=== PATIENT | female | born 1955 | race African-American/Black ===

== ENCOUNTER 2019-03-20 21:31 | Inpatient (IN) | payer MEDICAID ==
[~2019-03-20] VITALS: Ht 157.5 cm; Wt 137.7 kg
[~2019-03-20 21:31] MED LIST: ASPI-1393 MT; BRIM.2 EACHEYE; FURO80TA3 PO; HYDR-4001 MT; ONDA4TAB5 MT
[2019-03-20] MEDS ORDERED: ONDANSETRON HCL 4MG/2ML INJ IV STA (22:12)
[2019-03-20] MEDS ORDERED: KETOROLAC 30MG/ML VIAL IV STA (22:12)
[2019-03-20] MEDS ORDERED: SODIUM CHLORIDE 0.9% 1,000 ML IV ONE (22:12)
[2019-03-20 23:17] LABS: BASOPHILS % 0.3 % (0.0-2.0); EOSINOPHILS % 0.2 % (0.0-5.0); HEMATOCRIT. 39.4 % (36.0-48.0); HEMOGLOBIN. 12.5 g/dL (12.0-16.0); MEAN CORPUSCULAR HEMOGLOBIN 28.7 pg (28.0-32.0); MEAN CORPUSCULAR VOLUME 90.1 fL (81.0-99.0); NEUTROPHILS % 81.5 % (40.0-76.0); PLATELET 361 x1000/uL (130-400); RED BLOOD CELL COUNT 4.37 mill/uL (4.2-5.4); RED CELL DISTRIBUTION WIDTH 15.6 % (11.6-14.6)
[2019-03-20 23:23] LABS: CHLORIDE 101 mEq/L (98-107)
[2019-03-20 23:25] LABS: PROTHROMBIN TIME 10.1 sec (9.6-11.0)
[2019-03-21 00:45] LABS: CLARITY URINE CLOUDY (CLEAR); COLOR URINE DARK YELLOW (YELLOW); KETONES URINE TRACE (NEGATIVE); LEUKOCYTE ESTERASE URINE NEGATIVE (NEGATIVE); NITRITE URINE NEGATIVE (NEGATIVE); OCCULT BLOOD URINE NEGATIVE (NEGATIVE); PROTEIN URINE 1+ (NEGATIVE); SPECIFIC GRAVITY URINE 1.032 (1.005-1.030)
[2019-03-21] MEDS ORDERED: MORPHINE SULFATE 4 MG/ML CPJ (NOT FOR IM USE) IV ONE (00:45)
[2019-03-21] MEDS ORDERED: METOCLOPRAMIDE HCL 10MG/2ML VIAL IV ONE (01:15)
[2019-03-21] MEDS ORDERED: LORAZEPAM 2MG/ML CPJ IV ONE (01:15)
[2019-03-21] MEDS ORDERED: ONDANSETRON HCL 4MG/2ML INJ IV ONE (01:15)
[2019-03-21 04:37] VITALS: BP 157/67
[2019-03-21] MEDS ORDERED: DIPHENHYDRAMINE 50MG/ML VIAL IV PRN (06:00)
[2019-03-21] MEDS ORDERED: DEXTROSE 50% WATER 50ML SYRINGE IV PRN (06:00)
[2019-03-21] MEDS ORDERED: MORPHINE SULFATE 2 MG/ML CPJ (NOT FOR IM USE) IV PRN (06:00)
[2019-03-21] MEDS: BLOOD SUGAR DIAGNOSTIC STRIP TEST SCH ×4 (07:50→21:00)
[2019-03-21 08:00] VITALS: BP 122/44
[2019-03-21] MEDS: ENOXAPARIN 40MG/0.4ML SYR SUBCUT SCH ×2 (08:42→21:38)
[2019-03-21] MEDS: LISINOPRIL 20MG TABLET PO SCH ×2 (08:45→21:00)
[2019-03-21] MEDS: INSULIN LISPRO 100 UNITS/ML SUBCUT SCH ×4 (08:52→21:00)
[2019-03-21] MEDS: ONDANSETRON HCL 4MG/2ML INJ IV PRN ×2 (09:59→16:20)
[2019-03-21] MEDS ORDERED: INSULIN GLARGINE UD 100 UNITS/ML SYR SUBCUT SCH (10:00)
[2019-03-21] MEDS: INSULIN GLARGINE UD 100 UNITS/ML SYR SUBCUT SCH ×2 (10:00→23:19)
[2019-03-21 10:10] LABS: BASOPHILS % 0.4 % (0.0-2.0); EOSINOPHILS % 1.1 % (0.0-5.0); HEMATOCRIT. 32.7 % (36.0-48.0); HEMOGLOBIN. 10.5 g/dL (12.0-16.0); LYMPHOCYTES % 24.7 % (20.0-50.0); MEAN CORPUSCULAR HEMOGLOBIN 28.6 pg (28.0-32.0); MEAN CORPUSCULAR VOLUME 88.7 fL (81.0-99.0); MONOCYTES % 9.9 % (2.0-8.0); NEUTROPHILS % 63.9 % (40.0-76.0); PLATELET 315 x1000/uL (130-400); RED BLOOD CELL COUNT 3.69 mill/uL (4.2-5.4)
[2019-03-21 10:12] LABS: CHLORIDE 107 mEq/L (98-107)
[2019-03-21 10:20] LABS: LDL CHOLESTEROL 62 mg/dL (5-100)
[2019-03-21 10:21] LABS: HDL CHOLESTEROL 53 mg/dL (40-59)
[2019-03-21] MEDS: BRIMONIDINE 0.2% OPHTH DROPS 5ML EACHEYE SCH (10:27)
[2019-03-21 12:00] VITALS: BP 116/46
[2019-03-21] MEDS ORDERED: MORPHINE SULFATE 4 MG/ML CPJ (NOT FOR IM USE) IV PRN (14:00)
[2019-03-21 16:00] VITALS: BP 114/48
[2019-03-21 20:00] VITALS: BP 114/35
[2019-03-21 22:07] VITALS: BP 102/40
[2019-03-22] VITALS: BP 114/38
[2019-03-22 04:00] VITALS: BP 126/47
[2019-03-22 06:44] LABS: BASOPHILS % 0.5 % (0.0-2.0); EOSINOPHILS % 4.8 % (0.0-5.0); HEMATOCRIT. 31.6 % (36.0-48.0); HEMOGLOBIN. 10.2 g/dL (12.0-16.0); LYMPHOCYTES % 31.4 % (20.0-50.0); MEAN CORPUSCULAR HEMOGLOBIN 28.6 pg (28.0-32.0); MEAN PLATELET VOLUME 8.5 fl (7.4-10.4); MONOCYTES % 8.3 % (2.0-8.0); PLATELET 287 x1000/uL (130-400); RED BLOOD CELL COUNT 3.55 mill/uL (4.2-5.4); RED CELL DISTRIBUTION WIDTH 15.6 % (11.6-14.6)
[2019-03-22] MEDS: BLOOD SUGAR DIAGNOSTIC STRIP TEST SCH ×4 (07:20→21:04)
[2019-03-22] MEDS: INSULIN LISPRO 100 UNITS/ML SUBCUT SCH ×4 (07:50→21:03)
[2019-03-22 08:00] VITALS: BP 131/41
[2019-03-22] MEDS: LISINOPRIL 20MG TABLET PO SCH ×2 (09:00→21:00)
[2019-03-22] MEDS: ENOXAPARIN 40MG/0.4ML SYR SUBCUT SCH ×2 (10:44→21:02)
[2019-03-22] MEDS: BRIMONIDINE 0.2% OPHTH DROPS 5ML EACHEYE SCH (10:45)
[2019-03-22] MEDS: INSULIN GLARGINE UD 100 UNITS/ML SYR SUBCUT SCH ×2 (10:46→22:20)
[2019-03-22 12:00] VITALS: BP 131/41
[2019-03-22] MEDS: NYSTATIN POWDER 15GM TOP SCH ×2 (13:49→17:20)
[2019-03-22] MEDS: HYDROCODONE/ACETAMINOPHEN 5/325MG TABLET PO PRN ×2 (15:10→21:04)
[2019-03-22 16:00] VITALS: BP 157/54
[2019-03-22] MEDS ORDERED: AZOPT EACHEYE (19:55)
[2019-03-22 20:00] VITALS: BP 157/45
[2019-03-22] MEDS ORDERED: NON FORMULARY PATIENT HOME MED XX SCH (20:00)
[2019-03-22] MEDS: DORZOLAMIDE 2% OPHTH 10 ML BOTTLE EACHEYE SCH (21:02)
[2019-03-23] VITALS: BP 152/49
[2019-03-23] MEDS: HYDROCODONE/ACETAMINOPHEN 5/325MG TABLET PO PRN ×2 (02:13→09:41)
[2019-03-23 04:00] VITALS: BP 134/38
[2019-03-23] MEDS: BLOOD SUGAR DIAGNOSTIC STRIP TEST SCH ×4 (06:40→20:42)
[2019-03-23] MEDS: INSULIN LISPRO 100 UNITS/ML SUBCUT SCH ×4 (07:50→20:56)
[2019-03-23 08:00] VITALS: BP 159/47
[2019-03-23] MEDS: LISINOPRIL 20MG TABLET PO SCH ×2 (09:43→20:42)
[2019-03-23] MEDS: DORZOLAMIDE 2% OPHTH 10 ML BOTTLE EACHEYE SCH ×2 (09:44→20:42)
[2019-03-23] MEDS: ENOXAPARIN 40MG/0.4ML SYR SUBCUT SCH ×2 (09:45→20:42)
[2019-03-23] MEDS: ONDANSETRON HCL 4MG/2ML INJ IV PRN (09:48)
[2019-03-23] MEDS: NYSTATIN POWDER 15GM TOP SCH ×3 (09:57→20:41)
[2019-03-23] MEDS: BRIMONIDINE 0.2% OPHTH DROPS 5ML EACHEYE SCH (10:00)
[2019-03-23] MEDS ORDERED: IRBE300T18 PO (11:30)
[2019-03-23] MEDS ORDERED: ISOS60TA4 PO (11:30)
[2019-03-23] MEDS ORDERED: NITR0.4T SL (11:49)
[2019-03-23] MEDS ORDERED: CHOL200010 PO (11:49)
[2019-03-23 12:00] VITALS: BP 101/60
[2019-03-23] MEDS: INSULIN GLARGINE UD 100 UNITS/ML SYR SUBCUT SCH ×2 (12:04→22:10)
[2019-03-23 16:00] VITALS: BP 123/57
[2019-03-23 20:05] VITALS: BP 116/41
[2019-03-24 00:42] VITALS: BP 185/61
[2019-03-24] MEDS: HYDROCODONE/ACETAMINOPHEN 5/325MG TABLET PO PRN ×3 (00:45→14:26)
[2019-03-24] MEDS: CLONIDINE 0.1MG TABLET PO PRN (00:48)
[2019-03-24 04:00] VITALS: BP 132/50
[2019-03-24 06:28] LABS: BASOPHILS % 0.6 % (0.0-2.0); EOSINOPHILS % 5.3 % (0.0-5.0); HEMATOCRIT. 31.3 % (36.0-48.0); HEMOGLOBIN. 10.4 g/dL (12.0-16.0); LYMPHOCYTES % 28.5 % (20.0-50.0); MEAN CORPUSCULAR HEMOGLOBIN 29.2 pg (28.0-32.0); MEAN CORPUSCULAR VOLUME 87.9 fL (81.0-99.0); MEAN PLATELET VOLUME 8.5 fl (7.4-10.4); MONOCYTES % 10.3 % (2.0-8.0); NEUTROPHILS % 55.3 % (40.0-76.0); PLATELET 266 x1000/uL (130-400); RED BLOOD CELL COUNT 3.56 mill/uL (4.2-5.4); RED CELL DISTRIBUTION WIDTH 15.2 % (11.6-14.6)
[2019-03-24 06:41] LABS: CHLORIDE 111 mEq/L (98-107)
[2019-03-24] MEDS: BLOOD SUGAR DIAGNOSTIC STRIP TEST SCH ×4 (07:05→21:25)
[2019-03-24] MEDS: INSULIN LISPRO 100 UNITS/ML SUBCUT SCH ×4 (07:50→21:00)
[2019-03-24 08:00] VITALS: BP 146/47
[2019-03-24] MEDS: LISINOPRIL 20MG TABLET PO SCH ×2 (08:22→21:00)
[2019-03-24] MEDS: DORZOLAMIDE 2% OPHTH 10 ML BOTTLE EACHEYE SCH ×2 (11:28→21:24)
[2019-03-24] MEDS: INSULIN GLARGINE UD 100 UNITS/ML SYR SUBCUT SCH ×3 (11:28→21:37)
[2019-03-24] MEDS: NYSTATIN POWDER 15GM TOP SCH ×3 (11:29→19:25)
[2019-03-24] MEDS: BRIMONIDINE 0.2% OPHTH DROPS 5ML EACHEYE SCH (11:29)
[2019-03-24] MEDS: ENOXAPARIN 40MG/0.4ML SYR SUBCUT SCH ×2 (11:29→21:24)
[2019-03-24 12:00] VITALS: BP 150/55
[2019-03-24 16:00] VITALS: BP 144/46
[2019-03-24 20:28] VITALS: BP 118/49
[2019-03-25] VITALS (7 sets, daily range): BP systolic 125–171; BP diastolic 45–60
[2019-03-25] MEDS: CLONIDINE 0.1MG TABLET PO PRN (05:22)
[2019-03-25] MEDS: HYDROCODONE/ACETAMINOPHEN 5/325MG TABLET PO PRN ×3 (05:25→19:10)
[2019-03-25] MEDS: BLOOD SUGAR DIAGNOSTIC STRIP TEST SCH ×4 (06:50→20:39)
[2019-03-25] MEDS: INSULIN LISPRO 100 UNITS/ML SUBCUT SCH ×4 (07:50→20:39)
[2019-03-25] MEDS: LISINOPRIL 20MG TABLET PO SCH ×2 (08:52→20:38)
[2019-03-25] MEDS: ENOXAPARIN 40MG/0.4ML SYR SUBCUT SCH ×2 (08:56→20:39)
[2019-03-25] MEDS: NYSTATIN POWDER 15GM TOP SCH ×3 (08:57→17:20)
[2019-03-25] MEDS: BRIMONIDINE 0.2% OPHTH DROPS 5ML EACHEYE SCH (08:57)
[2019-03-25] MEDS: DORZOLAMIDE 2% OPHTH 10 ML BOTTLE EACHEYE SCH ×2 (08:57→20:38)
[2019-03-25] MEDS: INSULIN GLARGINE UD 100 UNITS/ML SYR SUBCUT SCH (09:54)
== END 2019-03-25 21:05 | disposition short-term general hospital (02) | DRG 254 ==
LOC: ER 21:31 → 6WST 03-21 01:52 → EDBEDREQ 03-21 01:55 → ENRESERV 03-21 04:04
PROVIDERS: ADMIT Internal Medicine; ATTEND Internal Medicine
DX: K43.9 Ventral hernia without obstruction or gangrene (principal); I11.0 Hypertensive heart disease with heart failure; I50.42 Chronic combined systolic (congestive) and diastolic (congestive) heart failure; E44.1 Mild protein-calorie malnutrition; E11.9 Type 2 diabetes mellitus without complications; E66.01 Morbid (severe) obesity due to excess calories; Z68.43 Body mass index [BMI] 50.0-59.9, adult; Z86.73 Personal history of transient ischemic attack (TIA), and cerebral infarction without residual deficits; Z71.3 Dietary counseling and surveillance; Z90.49 Acquired absence of other specified parts of digestive tract; Z88.1 Allergy status to other antibiotic agents; Z88.8 Allergy status to other drugs, medicaments and biological substances; Z79.82 Long term (current) use of aspirin; Z79.899 Other long term (current) drug therapy
CPT/HCPCS: 36415; 74018; 74176; 80048; 80061; 81003; 82962; 83036; 84134; 84484; 93005; 93970; 96361; 96374; 96375; 96376; 97162; 97535; 99285; A6261; J1650; J1815; J1885; J2060; J2270; J2405; J2765; J7030; A4315

== ENCOUNTER 2019-05-11 11:27 | Emergency (ER) | payer MEDICAID, OTHER ==
[~2019-05-11] VITALS: Ht 175.3 cm; Wt 96.0 kg
[~2019-05-11 11:27] MED LIST changes: -ASPI-1393 MT; +ASPI-1497 MT; +AZOPT EACHEYE; +CHOL200010 PO; +IRBE300T18 PO; +ISOS60TA4 PO; +NITR0.4T SL
[2019-05-11] MEDS ORDERED: PIPERACILLIN/TAZ 3.375G PREMIX 50 ML IV ONE (11:45)
[2019-05-11] MEDS ORDERED: SODIUM CHLORIDE 0.9% 1000ML BAG (SEPSIS BOLUS) IV ONE (11:45)
[2019-05-11] MEDS ORDERED: VANCOMYCIN 1 G PREMIX 200 ML IV ONE (11:45)
[2019-05-11 13:54] LABS: HEMATOCRIT. 29.2 % (36.0-48.0); HEMOGLOBIN. 9.5 g/dL (12.0-16.0); MEAN CORPUSCULAR HEMOGLOBIN 28.1 pg (28.0-32.0); MEAN CORPUSCULAR VOLUME 86.9 fL (81.0-99.0); MEAN PLATELET VOLUME 8.2 fl (7.4-10.4); PLATELET 529 x1000/uL (130-400); RED BLOOD CELL COUNT 3.37 mill/uL (4.2-5.4); RED CELL DISTRIBUTION WIDTH 15.9 % (11.6-14.6)
[2019-05-11 13:56] LABS: CHLORIDE 103 mEq/L (98-107)
[2019-05-11 13:57] LABS: INR 1.1; PROTHROMBIN TIME 11.7 sec (9.6-11.0)
[2019-05-11 14:32] LABS: PLATELET ESTIMATE INCREASED
[2019-05-11 15:40] LABS: CLARITY URINE CLEAR (CLEAR); COLOR URINE YELLOW (YELLOW); KETONES URINE NEGATIVE (NEGATIVE); LEUKOCYTE ESTERASE URINE NEGATIVE (NEGATIVE); NITRITE URINE NEGATIVE (NEGATIVE); OCCULT BLOOD URINE TRACE (NEGATIVE); PROTEIN URINE NEGATIVE (NEGATIVE); SPECIFIC GRAVITY URINE 1.015 (1.005-1.030); UROBILINOGEN URINE 0.2 E.U./dL (0.2-1.0)
[2019-05-11] MEDS ORDERED: ACETAMINOPHEN 325MG TABLET PO ONE (18:15)
[2019-05-11 22:43] VITALS: BP 121/49
== END 2019-05-11 23:54 | disposition short-term general hospital (02) ==
LOC: ER 11:52
DX: T81.49XA Infection following a procedure, other surgical site, initial encounter (principal); L03.311 Cellulitis of abdominal wall; I10 Essential (primary) hypertension; E11.9 Type 2 diabetes mellitus without complications; Z86.73 Personal history of transient ischemic attack (TIA), and cerebral infarction without residual deficits; Z79.899 Other long term (current) drug therapy; Z79.82 Long term (current) use of aspirin; J44.9 Chronic obstructive pulmonary disease, unspecified; Z88.8 Allergy status to other drugs, medicaments and biological substances; Z88.3 Allergy status to other anti-infective agents
CPT/HCPCS: 36415; 71045; 74176; 80053; 81003; 82962; 84484; 85025; 85610; 87040; 87086; 93005; 96365; 96368; 96375; 99285; J2543; J3370; J7030

== ENCOUNTER 2019-09-04 11:32 | Emergency (ER) | payer MEDICARE, OTHER ==
[~2019-09-04] VITALS: Ht 160 cm; Wt 113.0 kg
[~2019-09-04 11:32] MED LIST changes: +IRBE300T17 PO; -IRBE300T18 PO
[2019-09-04] MEDS ORDERED: KETOROLAC 60MG/2ML VIAL IM ONE (13:00)
[2019-09-04 15:27] VITALS: BP 127/56
== END 2019-09-04 15:30 | disposition home or self-care (01) ==
LOC: ER 11:56
DX: T81.31XA Disruption of external operation (surgical) wound, not elsewhere classified, initial encounter (principal); R03.0 Elevated blood-pressure reading, without diagnosis of hypertension; Y83.8 Other surgical procedures as the cause of abnormal reaction of the patient, or of later complication, without mention of misadventure at the time of the procedure; Y92.89 Other specified places as the place of occurrence of the external cause
CPT/HCPCS: 96372; 99283; J1885

== ENCOUNTER 2020-02-01 11:51 | Emergency (ER) | payer MEDICARE, OTHER ==
[~2020-02-01] VITALS: Ht 167.6 cm; Wt 110.0 kg
[2020-02-01] MEDS ORDERED: MORPHINE SULFATE 4 MG/ML CPJ (NOT FOR IM USE) IV STA (12:09)
[2020-02-01 12:43] LABS: BASOPHILS % 0.3 % (0.0-2.0); EOSINOPHILS % 1.2 % (0.0-5.0); HEMATOCRIT. 36.4 % (36.0-48.0); LYMPHOCYTES % 18.2 % (20.0-50.0); MEAN CORPUSCULAR HEMOGLOBIN 29.4 pg (28.0-32.0); MEAN CORPUSCULAR VOLUME 89.2 fL (81.0-99.0); MEAN PLATELET VOLUME 8.9 fl (7.4-10.4); MONOCYTES % 5.7 % (2.0-8.0); NEUTROPHILS % 74.6 % (40.0-76.0); PLATELET 302 x1000/uL (130-400); RED BLOOD CELL COUNT 4.08 mill/uL (4.2-5.4); RED CELL DISTRIBUTION WIDTH 14.7 % (11.6-14.6)
[2020-02-01 12:49] LABS: CHLORIDE 102 mEq/L (98-107)
[2020-02-01 12:50] LABS: PROTHROMBIN TIME 10.4 sec (9.6-11.0)
[2020-02-01] MEDS ORDERED: MORPHINE SULFATE 4 MG/ML CPJ (NOT FOR IM USE) IV ONE (14:30)
[2020-02-01] MEDS ORDERED: ONDANSETRON HCL 4MG/2ML INJ IV PRN (15:30)
[2020-02-01] MEDS ORDERED: DEXT 5%/0.9% NACL 1,000 ML IV ONE (15:30)
[2020-02-01] MEDS ORDERED: IPRATROPIUM/ALBUTEROL 0.5-3(2.5)MG/3ML NEB HHN PRN (15:30)
[2020-02-01] MEDS ORDERED: DIPHENHYDRAMINE 50MG/ML VIAL IV PRN (15:30)
[2020-02-01] MEDS ORDERED: ACETAMINOPHEN 650MG SUPP PR PRN (15:30)
[2020-02-01] MEDS ORDERED: MORPHINE SULFATE 2 MG/ML CPJ (NOT FOR IM USE) IV PRN (15:30)
[2020-02-01] MEDS ORDERED: LABETALOL 5MG/ML SYR 20 MG/4 ML SYRINGE IV ONE (19:30)
[2020-02-01 20:16] LABS: CLARITY URINE CLEAR (CLEAR); COLOR URINE YELLOW (YELLOW); KETONES URINE NEGATIVE (NEGATIVE); LEUKOCYTE ESTERASE URINE NEGATIVE (NEGATIVE); NITRITE URINE NEGATIVE (NEGATIVE); OCCULT BLOOD URINE 2+ (NEGATIVE); PROTEIN URINE 3+ (NEGATIVE); SPECIFIC GRAVITY URINE 1.023 (1.005-1.030); UROBILINOGEN URINE 0.2 E.U./dL (0.2-1.0)
[2020-02-01 20:50] VITALS: BP 172/73
== END 2020-02-01 21:02 | disposition home or self-care (01) ==
LOC: ER 11:51 → EDBEDREQTM 14:23 → EDBEDREQ 14:23 → CANBEDREQ 18:48 → ER 21:02
DX: K43.6 Other and unspecified ventral hernia with obstruction, without gangrene (principal); E27.9 Disorder of adrenal gland, unspecified; E11.9 Type 2 diabetes mellitus without complications; J44.9 Chronic obstructive pulmonary disease, unspecified; Z99.81 Dependence on supplemental oxygen
CPT/HCPCS: 36415; 74176; 80053; 81003; 83690; 85025; 85610; 93970; 96361; 96374; 96375; 96376; 99285; J2270; J3490